=== PATIENT | female | born 1960 | race Caucasian/White ===

== ENCOUNTER 2024-06-29 06:50 | Day surgery (SDC) | payer MEDICARE, OTHER ==
--- NOTE | 2024-06-28 10:41 | NUR ---
PHONE CALL TO THE FOLLOWING NUMBER [phone]. NO ANSWER LEFT MESSAGE.
[~2024-06-29] VITALS: Ht 152.4 cm; Wt 56.2 kg
[~2024-06-29 06:50] MED LIST: ATIVAN0.5 MG PO; CLARITIN10 M2 PO; COL-RITE100 MG PO; D3 DOTS50 MCG PO; DEXAMETHASONE SOD PHOS 4 MG/ML VIAL ONE; EAR WAX REMOVAL15 ML; FAMOTIDINE 20 MG/ 2 ML VIAL ONE; GABAPENTIN400 MG PO; HYDROCHLOROTHIA25 MG PO; KETOROLAC TROMETHAMINE 30 MG/ML VIAL ONE; LACTATED RINGER'S 1,000 ML IV ONE; LACTATED RINGER'S 1,000 ML IV SCH; LIDOCAINE HCL 4% 5 ML AMP ONE; LISINOPRIL10 MG PO; METOCLOPRAMIDE HCL 10 MG/2 ML SDV ONE; MIDAZOLAM HCL 2 MG/2 ML VIAL ONE; MULTI VITAMIN1 EACH PO; NITROFURANTOIN50 MG PO; OXYBUTYNIN CHLOR5 MG PO; ROCURONIUM BROMIDE 50 MG/5 ML SYR ONE; SENNA8.6 MG PO; SERTRALINE HCL100 MG PO; SUCCINYLCHOLINE IN 0.9% NACL 200 MG/10 ML SYRINGE ONE; SUGAMMADEX SODIUM 200 MG/2 ML ML ONE; THERAPEUTIC-M1 EAC1 PO; VENTOLIN HFA18 GM INH; ZOCOR20 MG PO; [UNRECOGNIZED DRUG - OTHER]; [UNRECOGNIZED DRUG - REMARK] PO; fentaNYL citrate 100 MCG/2 ML VIAL ONE; ondansetron HCL 4 MG/2 ML VIAL ONE; propofoL 200 MG/20 ML VIAL ONE
[2024-06-29] MEDS ORDERED: IBLOOD GLUCOSE TEST STRIP 1 EA TEST VI PRN ×2 (07:00→09:30)
[2024-06-29] MEDS ORDERED: LIDOCAINE HCL 1% 5 ML SDV INJ ONE (07:00)
[2024-06-29 07:14] VITALS: BP 137/77
--- NOTE | 2024-06-29 07:30 | NUR ---
PT NOT AVAILABLE FOR VISIT. PROVIDED PRAYER.
[2024-06-29] MEDS ORDERED: SEVOFLURANE 250 ML BTL INH ONE (08:40)
[2024-06-29] MEDS ORDERED: ePHEDrine sulfate 50 MG/ML AMP ONE (09:25)
[2024-06-29] MEDS ORDERED: ondansetron HCL 4 MG/2 ML VIAL IV PRN (09:30)
[2024-06-29] MEDS ORDERED: MEPERIDINE HCL 25 MG/1 ML VIAL IV PRN (09:30)
[2024-06-29] MEDS ORDERED: METOCLOPRAMIDE HCL 10 MG/2 ML SDV IV PRN (09:30)
[2024-06-29] MEDS ORDERED: PROCHLORPERAZINE EDISYLATE 10 MG/2 ML VIAL IV PRN (09:30)
[2024-06-29] MEDS ORDERED: fentaNYL citrate 50 MCG/ML SDV IV PRN (09:30)
[2024-06-29] MEDS ORDERED: droPERidol 5 MG/2 ML VIAL IV PRN (09:30)
[2024-06-29] MEDS ORDERED: NALOXONE HCL 0.4 MG SYR IV PRN (09:30)
--- NOTE | 2024-06-29 10:20 | NUR ---
PT ARRIVED BACK TO FLOOR VIA STRETCHER. ORIENTED TO ROOM AND CALL LIGHT. CAREGIVER AT BEDSIDE.
--- NOTE | 2024-06-29 11:08 | NUR ---
06/29/24 1108 Catherine Simmons 0944- PT ARRIVES TO PACU IN [place]. ORAL AIRWAY IN PLACE AND 10L O2 VIA MASK. CHIN LIFT REQUIRED. PT IS NONREACTIVE TO STIMULI. ALL MONITORS PUT IN PLACE. LR INFUSING IN R FOREARM. NO DRAINAGE NOTED AROUND MOUTH. 0948- PT SHOWS SIGNS OF WAKING UP. ORAL AIRWAY REMOVED AND O2 TURNED OFF. HOB INCREASED PATIENT LIFTED HEAD OFF OF PILLOW. 0953- PT OPENS EYES AND IS REACTIVE TO STIMULI BUT NOT FOLLOWING COMMANDS. 0958- PT HOB INCREASED TO HIGH [place]OWLERS. O2 SATURATION IS LOW 90S TO HIGH 80S. INCENTIVE SPIROMETER ENCOURAGED. PT UNCOOPERATIVE AT THIS TIME. PT ENCOURAGED TO BREATHE DEEPLY AND COUGH, WITH LITTLE TO NO ATTEMPT. 1000- NC PLACED WITH 4L DUE TO OXYGEN SATURATION IN THE HIGH 80S. O2 SATURATION INCREASED TO MID TO HIGH 90S. 1004- THICK SALIVA NOTED IN PTS MOUTH. SUCTIONING DONE AROUND MOUTH. PT STATES "WANT TO GO HOME", AND PT EDUCATED ABOUT IMPORTANCE OF MONITORING. PT STATES "NO" WHEN ASKED TO TRY THE INCENTIVE SPIROMETER AGAIN. 1007- PT O2 DECREASED TO 2L AT THIS TIME. 1012- PT ENCOURAGED TO CONTINUE TO COUGH AND BREATHE DEEPLY. 1020-ALL MONITORS REMOVED AND PT MOVED TO DS AT THIS TIME ON 2L OF O2 VIA NC. PT HOOKED UP TO MONITORS AT THIS TIME. PT TRYING TO REMOVE O2 SENSOR AND MOVE BLANKETS TO "GO HOME". PT OFFERED SNACKS. JEREL EWING TOOK BEDSIDE REPORT. CARE TURNED OVER AT THIS TIME.
--- NOTE | 2024-06-29 11:17 | NUR ---
PT UP TO BATHROOM WITH 1 PERSON ASSIST. ATTEMPTED TO TITRATE PATIENT TO ROOM AIR AT THIS TIME. PTS SATS DROPPED INTO THE MID 80'S. PLACED BACK ON 2L NC AND ENCOURAGED COUGHING AND DEEP BREATHING. PT UNABLE TO USE IS DUE TO INABILITY TO FOLLOW DIRECTIONS.
[2024-06-29 11:19] VITALS: BP 134/7
--- NOTE | 2024-06-29 12:41 | NUR ---
PTS SATS 88 TO 89% ON RA. ATTEMPTED TO HAVE PATIENT USE THE IS AND COUGH AND DEEP BREATH. PT UANBLE TO FOLLOW DIRECTIONS WELL ENOUGH TO DO THIS. PT UP IN THE WHEELCHAIR CURRENTLY. CALL DULCE LERNER. ORDER RECIEVED FOR JEREMY DONNELLY AT THIS TIME.
[2024-06-29] MEDS ORDERED: ALBUTEROL/IPRATROPIUM 3 ML NEB INH ONE (12:45)
--- NOTE | 2024-06-29 12:45 | NUR ---
PT REFUSED DUO-NEB. PATIENT RIPPED MASK OFF AND WOULDNT LET RT ASSESS. PT BECOMING MORE AGGITATED THE MORE INTERVENTIONS TRIED. CALL BACK HANDHOLE MACHINE OPERATOR AT THIS TIME. HANDHOLE MACHINE OPERATOR OKAY'D PATIENT TO LEAVE AT THIS TIME. INSTURCTED CAREGIVER TO RETURN TO FACILITY IF PATIENT HAS ANY SHORTNESS OR DIFFICULTY BREATHING. CAREGIVER VERABLIZED UNDERSTANDING.
--- NOTE | 2024-06-29 13:05 | NUR ---
PT DISCHARGED TO HOME WITH ALL BELONGINGS. INSTRUCTIONS GIVEN AGAIN REGARDING SHORTNESS OF BREATH OR DIFFICULTY BREATHING. PATIENTS CAREGIVER VERBALIZED UNDERSTANDING. MD RECOMMENDED FOLLOW-UP CLEANING IN 18-24 MONTHS. INSTRUCTIONS SENT HOME WTIH PATIENT.
[2024-06-29 13:20] VITALS: BP 134/76
== END 2024-06-29 13:05 | disposition home or self-care (01) ==
LOC: DS 06:50 → OPS 06:50 → DS 07:00 → OPS 08:50
PROVIDERS: ATTEND Dentist General Practice
PROC: 0CDWXZ2 Extraction of Upper Tooth, All, External Approach (ICD-10-PCS; 2024-06-29)
PROC: 0CDXXZ2 Extraction of Lower Tooth, All, External Approach (ICD-10-PCS; principal; 2024-06-29 08:50)
DX: K05.6 Periodontal disease, unspecified (principal); E78.2 Mixed hyperlipidemia; G80.9 Cerebral palsy, unspecified; Z88.5 Allergy status to narcotic agent; Z88.2 Allergy status to sulfonamides; Z88.1 Allergy status to other antibiotic agents; Z88.8 Allergy status to other drugs, medicaments and biological substances; Z79.899 Other long term (current) drug therapy
CPT/HCPCS: 00170; J0330; J1100; J1885; J2250; J2405; J2704; J2765; J3010; J3490; J7121